=== PATIENT | female | born 1955 | race Caucasian/White ===

== ENCOUNTER → 2019-02-04 10:22 | Outpatient (CLI) | payer OTHER, SELFPAY ==
[2019-02-04 11:02] LABS: Add Manual Diff / Slide Review NO; Basophils Absolute Auto 0 /uL (0-100); Basophils Percent Auto 0.3 % (0-2); Eosinophils Absolute Auto 100 /uL (0-450); Eosinophils Percent Auto 2.8 % (2-4); Hematocrit 39.7 % (36-46); Hemoglobin 13.5 g/dL (12.0-16.0); Lymphocytes Absolute Auto 1600 /uL (1100-4500); Lymphocytes Percent Auto 29.7 % (25-40); Mean Corpuscular Hemoglobin 32.2 PG (26-34); Mean Corpuscular Volume 94.6 fL (80-100); Monocytes Absolute Auto 400 /uL (0-900); Monocytes Percent Auto 6.7 % (3-14); Neutrophils Absolute Auto 3200 /uL (1500-7000); Neutrophils Percent Auto 60.5 % (50-75); Platelet Count 279 X10^3/uL (150-400); Red Cell Distribution Width 13.7 % (11.6-14.8); White Blood Cell Count 5.3 X10^3/uL (4.5-11.0)
[2019-02-04 11:12] LABS: Hemoglobin A1C% w Est Avg Glu 5.5 % (4.0-6.0)
[2019-02-04 11:52] LABS: Alanine Aminotransferase 37 IU/L (9-52); Albumin 4.6 g/dL (3.5-5.0); Albumin Globulin Ratio 1.4 (1.0-2.8); Alkaline Phosphatase 59 U/L (38-126); Aspartate Aminotransferase 25 IU/L (14-36); BUN Creatinine Ratio 15.7 (6-22); Bilirubin Total 0.4 mg/dL (0.2-1.3); Blood Urea Nitrogen 11 mg/dL (7-17); Calcium 9.5 mg/dL (8.4-10.2); Carbon Dioxide 24 mmol/L (22-32); Chloride 103 mmol/L (98-107); Cholesterol 188 mg/dL (140-199); Estimated Glomerular Filt Rate > 60.0 mL/min (>60); Globulin 3.2 g/dL (1.7-4.1); Glucose 107 mg/dL (80-110); HDL Cholesterol 54 mg/dL (40-60); HEMOLYSIS < 15 (0-50); LDL Cholesterol Calculated 116 mg/dL (<100); Potassium 3.8 mmol/L (3.4-5.1); Sodium 141 mmol/L (137-145); Total Protein 7.8 g/dL (6.3-8.2); Triglycerides 90 mg/dL (35-150)
== END ==
PROVIDERS: PCP Family Medicine; Visit Provider Family Medicine
DX: B18.2 Chronic viral hepatitis C (principal); R73.02 Impaired glucose tolerance (oral)
CPT/HCPCS: 36415; 80053; 80061; 83036; 85025

== ENCOUNTER → 2019-02-14 12:33 | Outpatient (CLI) | payer OTHER, SELFPAY ==
--- NOTE | 2019-02-14 12:36 | DI.RAD.S_ITS ---
PROCEDURE: XR HAND RT MIN 3V INDICATIONS: joint pain TECHNIQUE: 3 views of the hand(s) acquired. COMPARISON: None. FINDINGS: Bones: No fractures or dislocations. Carpal bones are normally aligned. No suspicious bony lesions. There is [id number] osteoarthritic changes at the radiocarpal joint, first metacarpophalangeal joint and multiple interphalangeal joints. Soft tissues: No suspicious soft tissue calcifications. IMPRESSION: Mild to moderate osteoarthritic changes. Dictated by: Brandon Garcia M.D. on 02/14/2019 at 17:16 Approved by: Brandon Garcia M.D. on 02/14/2019 at 17:18
[2019-02-14 13:36] LABS: Hemoglobin A1C% w Est Avg Glu 5.5 % (4.0-6.0)
== END ==
PROVIDERS: PCP Family Medicine; Visit Provider Family Medicine
DX: M25.541 Pain in joints of right hand (principal); M19.041 Primary osteoarthritis, right hand; R73.9 Hyperglycemia, unspecified; B19.20 Unspecified viral hepatitis C without hepatic coma
CPT/HCPCS: 36415; 73130; 83036; 87522

== ENCOUNTER 2019-05-19 07:32 | Day surgery (SDC) | payer OTHER, SELFPAY ==
[2019-05-19] VITALS (9 sets, daily range): BP systolic 102–141; BP diastolic 58–80; PULSE 60–70; RESP 10–21; TEMP 36–36.8; O2SAT 95–98; BMI 29.0
--- NOTE | 2019-05-19 | PATH_ITS ---
[facility] Accession Number: [id number] . 01 Material submitted: . rectum - RECTAL POLYP . 01 Clinical history: . SCREENING COLONOSCOPY . 02 Diagnosis: Rectum, Polyp: Hyperplastic polyp. V/05/20/2019 . 02 Electronically signed: . Wander Ponce MD, PhD, Pathologist NPI- [id number] . 01 Gross description: . RECTAL POLYP: Received in formalin is 1 fragment(s) of ye, soft tissue measuring 0.3 x 0.3 x 0.1 cm which is entirely submitted and submitted entirely in 1 cassette(s) /DMC /DMC . 02 Pathologist provided ICD-10: K63.5 . 02 CPT . 483451 Performed at: 01 [facility] [address] [place] [address], [place], [place] [id number] MD Rojelio Pennington MD Phone: [phone] Performed at: 02 [facility] [address] [place], [place] [id number] MD Loretta Burrell MD Phone: [phone]
[2019-05-19] MEDS: SODIUM CHLORIDE 0.9% 1,000 ML 150 ML IV (08:10)
--- NOTE | 2019-05-19 10:53 | PM.HP.1 ---
History of Present Illness Date Patient Seen: 05/19/19 Time Patient Seen: 10:53 Chief complaint: [id number] SCREENING COLONOSCOPY Narrative: 64-year-old woman with a personal history of colon polyps. No family history of colon or rectal cancer. Personal history of IBS Prep well No new intestinal complaints Patient History Medical History (Updated 06/10/18 @ 13:29 by Patti Livingston) Abnormal Pap smear of cervix (Chronic) Dyspareunia (Chronic) GERD (gastroesophageal reflux disease) (Chronic) Genital warts (Chronic) Hepatitis C (Chronic ~1995) Plantar warts (Chronic ~2013) Seasonal allergies (Chronic) Shoulder pain (Chronic) Wrist tendonitis (Chronic) Chickenpox (Resolved) Measles (Resolved) Mumps (Resolved) Surgical History (Updated 06/10/18 @ 13:29 by Patti Livingston) Anesthesia (Inactive) Status post biopsy (~1996) Status post colonoscopy (~2004) Status post colonoscopy (~2007) Status post colonoscopy (~2012) Status post dilation and curettage (~1977) Family History (Updated 12/05/15 @ 00:00 by Conversion Provider) Father Diabetes mellitus Heart disease Mother Hypertension Parkinson disease Sister Age: 68 Hypertension Hypothyroid Sister Age: 64 Hypertension Sister Age: 61 Hypertension Grandfather No problems noted. Grandmother No problems noted. Social History household members: spouse Smoking Status: Former smoker Family & Social History Family History (Updated 12/05/15 @ 00:00 by Conversion Provider) Father Diabetes mellitus Heart disease Mother Hypertension Parkinson disease Sister Age: 68 Hypertension Hypothyroid Sister Age: 64 Hypertension Sister Age: 61 Hypertension Grandfather No problems noted. Grandmother No problems noted. Social History: household members spouse Tobacco & Substance use: Smoking Status Former smoker Meds Home Medications Medication Instructions Recorded Confirmed Type estradiol [Vagifem] 10 mcg VG SEE INSTRUCTIONS #24 tab 06/24/17 05/19/19 Rx amlodipine 5 mg tablet 5 mg PO QDAY #90 tab 12/20/18 05/19/19 Rx ondansetron [Zofran ODT] 4 mg SUBLINGUAL Q6HP PRN 05/19/19 05/19/19 History Allergies Allergy/AdvReac Type Severity Reaction Status Date / Time crab [CRAB] Allergy Mild CONTACT Verified 06/10/18 15:59 HIVES FROM THE SHELLS shrimp [SHRIMP] Allergy Mild CONTACT Verified 06/10/18 15:59 HIVES Review of Systems Constitutional Constitutional: Denies fever(s) Eyes Eyes: Denies bulging eyes ENT Ears, Nose, Mouth, and Throat: No lip swelling Cardiovascular Cardiovascular: Denies generalize swelling Respiratory Respiratory: Denies stridor Gastrointestinal Gastrointestinal: Denies coffee ground emesis Musculoskeletal Musculoskeletal: Denies loss of height Integumentary/Breasts Skin/Breast: Denies wounds Neurologic Neurologic: Denies abnormal speech and Denies confusion Psychiatric Psychiatric: Denies confusion Endocrine Endocrine: Denies deepening of the voice Hematologic/Lymphatic Hematologic/Lymphatic: Denies lymphadenopathy Allergic/Immunologic Allergic/Immunologic: Denies lip swelling Exam Vital Signs (past 8 hours): - 05/19/19 07:53 Temperature 98.2 F Pulse Rate 68 Respiratory Rate 14 Blood Pressure 141/80 H Pulse Oximetry 97 Oxygen Delivery Method Room Air Const General: cooperative and healthy appearing Orientation: alert HENMT Head: normal to inspection Nose: nares normal Mouth: oral mucosae normal and lip normal Eyes Eyelids: eyelids normal Conjunctivae: conjunctivae normal Sclera: sclerae normal Neck Neck: supple and other (No thyromegally) Chest Chest: other (LCTAB , regular respiratory effort) Cardio Rhythm: regular rhythm Heart Sounds: S1 normal, S2 normal, no gallops, no murmurs and no rubs GI Other: Abdomen soft nontender nondistended Skin General: no rashes or lesions noted Neuro General: alert and awake Psych Appearance: grossly normal Affect: normal affect Assessment & Plan Assessment & Plan narrative: 64-year-old woman presents for screening colonoscopy 6 years after her last screening colonoscopy. Family and personal history of colon polyps Risks of colonoscopy including bleeding, , perforation, missed lesions, hypoxia all discussed Patient ready to proceed
[2019-05-19] MEDS: GLUCAGON,HUMAN RECOMBINANT 1 MG/ML VIAL IV ×2 (11:25→11:35)
[2019-05-19] MEDS: diphenhydrAMINE 50 MG/ML VIAL 25 MG IV (11:36)
[2019-05-19] MEDS: fentaNYL 250 MCG/5 ML INJ IV (11:39)
[2019-05-19] MEDS: MIDAZOLAM 5 MG/5 ML VIAL IV (11:40)
--- NOTE | 2019-05-19 11:53 | P.OP.ENDO_ITS ---
Operative Date/Time/Diagnoses Date of procedure: 05/19/19 Time of procedure: 11:48 Pre-op diagnosis: Screening colonoscopy Post-op diagnosis: same Procedure & Clinicians Study performed: Screening colonoscopy-complete Polypectomy x1 forcep, rectum Same procedure as scheduled: Yes Indications: 64-year-old woman with a personal history of IBS and colon polyps - 6 years since last screening colonoscopy now overdue, no family history of colorectal cancer Surgeon: Stephen Kidd Procedure Notes SCOAP/Timeout: Completed Procedure in detail: Patient was brought to the endoscopy suite a time-out was completed. She was sedated with a total of 12 mg of midazolam and 225 micro g of fentanyl. Digital rectal exam was performed and was unremarkable. 160 cm colonoscope was was inserted and passed through the folds of the rectum and colon until the cecum was encountered. The colon itself was quite spastic requiring 1 g of glucagon to assist with scope passes. Overall she was quite tender during passage of the scope. The cecum was eventually reached with visualization of the ileocecal valve as well as the appendiceal orifice. The scope was slowly withdrawn visualizing the mucosa of this bowel. At the level of the rectum a single small sessile polyp was identified and removed via a Jumbo biopsy forcep. The scope was retroflexed no additional lesions were seen Prep was adequate Scope withdrawal time: 8 Sedation minutes: 36 Specimen(s): other (Rectal polyp) Complications: none Impression: 1. Tortuous colon, spastic 2. Single rectal polyp status post polypectomy Recommendations: Colonscopy in 5 years Plan for aftercare: PACU and then home Follow up: as needed Disposition: PACU
== END 2019-05-19 13:32 | disposition home or self-care (01) ==
PROVIDERS: PCP Family Medicine; Visit Provider Surgery
PROC: 0DJD8ZZ Inspection of Lower Intestinal Tract, Via Natural or Artificial Opening Endoscopic (ICD-10-PCS; CPT 45378; principal; 2019-05-19 08:45)
DX: Z86.010 Personal history of colon polyps (principal); K62.1 Rectal polyp
CPT/HCPCS: 45380; 99152; 99153; J1200; J1610; J2250; J3010

== ENCOUNTER → 2020-01-26 10:07 | Outpatient (CLI) | payer MEDICARE, OTHER, SELFPAY ==
[2020-01-26 10:37] LABS: Add Manual Diff / Slide Review NO; Basophils Absolute Auto 0 /uL (0-100); Basophils Percent Auto 0.5 % (0-2); Eosinophils Absolute Auto 300 /uL (0-450); Eosinophils Percent Auto 4.8 % (2-4); Hematocrit 37.7 % (36-46); Hemoglobin 13.1 g/dL (12.0-16.0); Lymphocytes Absolute Auto 1000 /uL (1100-4500); Lymphocytes Percent Auto 15.9 % (25-40); Mean Corpuscular HGB Conc 34.7 % (30-36); Mean Corpuscular Hemoglobin 32.6 PG (26-34); Mean Corpuscular Volume 93.9 fL (80-100); Monocytes Absolute Auto 400 /uL (0-900); Monocytes Percent Auto 6.4 % (3-14); Neutrophils Absolute Auto 4800 /uL (1500-7000); Neutrophils Percent Auto 72.4 % (50-75); Platelet Count 272 X10^3/uL (150-400); Red Blood Cell Count 4.01 X10^6/uL (4.0-5.2); Red Cell Distribution Width 13.4 % (11.6-14.8); White Blood Cell Count 6.6 X10^3/uL (4.5-11.0)
[2020-01-26 10:52] LABS: Alanine Aminotransferase 29 IU/L (<35); Albumin 4.7 g/dL (3.5-5.0); Albumin Globulin Ratio 1.4 (1.0-2.8); Alkaline Phosphatase 61 U/L (38-126); Aspartate Aminotransferase 26 IU/L (14-36); Bilirubin Total 0.4 mg/dL (0.2-1.3); Blood Urea Nitrogen 17 mg/dL (7-17); Calcium 9.6 mg/dL (8.4-10.2); Carbon Dioxide 24 mmol/L (22-32); Chloride 106 mmol/L (98-107); Cholesterol 193 mg/dL (140-199); Estimated Glomerular Filt Rate > 60.0 mL/min (>60); Globulin 3.3 g/dL (1.7-4.1); Glucose 112 mg/dL (80-110); HDL Cholesterol 53 mg/dL (40-60); HEMOLYSIS < 15 (0-50); LDL Cholesterol Calculated 104 mg/dL (<100); Potassium 4.3 mmol/L (3.4-5.1); Sodium 141 mmol/L (137-145); Triglycerides 182 mg/dL (35-150)
[2020-01-26 11:10] LABS: Creatinine Urine Random 117.7 mg/dL
[2020-01-26 11:11] LABS: Microalbumi Creatinin Ratio Ur 5.9 ug/mg CR (<30); Microalbumin Urine Random 0.7 mg/dL (0-1.6)
[2020-01-26 11:35] LABS: TSH w/ Reflex to FT4 1.58 uIU/mL (0.47-4.68)
[2020-01-26 13:39] LABS: Vitamin B12 387 pg/mL (239-931)
[2020-01-28 18:31] LABS: Homocysteine 31.7 umol/L (< 10.4)
[2020-01-30 18:45] LABS: Methylmalonic Acid 198 nmol/L (87-318)
== END ==
PROVIDERS: PCP Family Medicine; Referring Provider Family Medicine; Visit Provider Family Medicine
DX: B18.2 Chronic viral hepatitis C (principal); G62.9 Polyneuropathy, unspecified; I10 Essential (primary) hypertension; R53.83 Other fatigue; R73.02 Impaired glucose tolerance (oral); R73.03 Prediabetes; R74.8 Abnormal levels of other serum enzymes
CPT/HCPCS: 36415; 80053; 80061; 82043; 82570; 82607; 83090; 83921; 84443; 85025

== ENCOUNTER → 2020-06-14 09:33 | Outpatient (CLI) | payer MEDICARE, OTHER, SELFPAY ==
[2020-06-14 10:36] LABS: BUN Creatinine Ratio 24.6 (6-22); Blood Urea Nitrogen 16 mg/dL (7-17); Calcium 10.2 mg/dL (8.4-10.2); Carbon Dioxide 26 mmol/L (22-32); Chloride 104 mmol/L (98-107); Estimated Glomerular Filt Rate > 60.0 mL/min (>60); Glucose 121 mg/dL (80-110); HEMOLYSIS < 15 (0-50); Potassium 4.1 mmol/L (3.4-5.1); Sodium 140 mmol/L (137-145)
[2020-06-14 10:44] LABS: NT-proBNP (BNP-Adult 18+) 183 pg/mL (<125)
== END ==
PROVIDERS: PCP Family Medicine; Referring Provider Registered Nurse Diabetes Educator; Visit Provider Registered Nurse Diabetes Educator
DX: R60.9 Edema, unspecified (principal); Z86.19 Personal history of other infectious and parasitic diseases
CPT/HCPCS: 36415; 80048; 83880; 87522

== ENCOUNTER → 2020-06-26 08:01 | Outpatient (CLI) | payer MEDICARE, OTHER, SELFPAY ==
--- NOTE | 2020-06-26 08:03 | DI.ECHO.S_ITS ---
[facility]---------+ [facility] +---------+ : : [address] : : : : [id number] : : : : Phone: [phone] Echocardiogram Report + + :Name: VIVI KINNEY Study Date: 06/26/2020 Height: 67 in : :[facility] Weight: 190 lb : : Gender: Female BSA: 2.0 m2 : :: 1955 Age: 65 yrs BP: 135/84 mmHg: :Reason For Study: EDEMA : :Ordering Physician: ALISSON, : :NATASHA Performed By: Chary Payan : :Referring: NATASHA VINSON : + + Interpretation Summary Left ventricular systolic function is normal without focal wall motion abnormalities. The ejection fraction is estimated to be 55-60%. Diastolic parameters suggest probable normal left ventricular diastolic function and normal filling pressures. The right ventricle is normal in size and function. The right ventricular systolic pressure is estimated to be at least 31 mmHg based on an estimated right atrial pressure of 3 mm Hg. Both atria are normal in size. There is no significant valvular heart disease. The aortic root is normal size. Procedure: A two-dimensional transthoracic echocardiogram with color flow and Doppler was performed. The study quality was technically adequate. There is no prior echocardiogram noted for this patient. The patient was in sinus rhythm with heart rates between 55-72 bpm during the exam. Left Ventricle: The left ventricle is normal in size and wall thickness. Left ventricular systolic function is normal without focal wall motion abnormalities. The ejection fraction is estimated to be 55-60%. Diastolic parameters suggest probable normal left ventricular diastolic function and normal filling pressures. Right Ventricle: The right ventricle is normal in size and function. Atria: Both atria are normal in size. There is no Doppler evidence for an interatrial shunt. Mitral Valve: The mitral valve is normal in structure and function. There is trace mitral regurgitation. Aortic Valve: The aortic valve is not well visualized. The aortic valve is grossly normal. There is no aortic valve stenosis. No aortic regurgitation is present. Tricuspid Valve: The tricuspid valve is normal in structure and function. There is mild tricuspid regurgitation. The right ventricular systolic pressure is estimated to be at least 31 mmHg based on an estimated right atrial pressure of 3 mm Hg. Pulmonic Valve: The pulmonic valve is not well seen, but is grossly normal. There is a trace or physiologic amount of pulmonic regurgitation. There is no significant valvular heart disease. Great Vessels: The aortic root is normal size. The ascending aorta is at the upper limits of normal in size. The IVC is of normal diameter and collapses greater than 50% with a sniff. This suggests a low right atrial pressure of 3 mm Hg. Pericardium/ Pleura There is no pericardial effusion. There is no pleural effusion. MMode/2D Measurements & Calculations LVIDd: 5.0 cm LVOT diam: 1.9 cm LVIDs: 3.2 cm Ao root diam: 3.1 cm FS: 35.8 % asc Aorta Diam: 3.4 cm EPSS: 1.0 cm Ao Arch Diam (Prox Trans): 2.6 cm IVSd: 0.84 cm LVPWd: 0.88 cm LV ortega. diameter/BSA (cm/m^2): 2.5 LV sys. diameter/BSA (cm/m^2): 1.6 LA A2 area: 18.4 cm2 RA long axis: 4.9 cm LA A4 area: 16.7 cm2 RA area: 15.7 cm2 LA length (vol): 4.9 cm RA vol: 43.0 ml LA vol: 53.4 ml RA : 21.8 ml/m2 LA vol index: 27.0 ml/m2 IVC diam: 1.3 cm RVD1 (basal): 3.7 cm TAPSE: 2.6 cm Doppler Measurements & Calculations Ao V2 max: 183.8 cm/sec LVOT Max Cheo: 114.5 cm/sec Ao V2 mean: 117.5 cm/sec LV V1 max P.2 mmHg Ao max P.5 mmHg LV V1 VTI: 29.0 cm Ao mean P.8 mmHg VALARIE(I,D): 2.2 cm2 Ao V2 VTI: 39.3 cm VALARIE(V,D): 1.8 cm2 sev ratio: 0.74 VALARIE indexed to BSA (cm^2/m^2): 1.1 MV E max cheo: 94.6 cm/sec TR max cheo: 262.4 cm/sec MV A max cheo: 95.5 cm/sec TR max P.5 mmHg MV E/A: 0.99 PA V2 max: 110.5 cm/sec Med Peak E' Cheo: 6.8 cm/sec PA V2 mean: 69.8 cm/sec E/E' med: 14.0 PA mean P.3 mmHg Lat Peak E' Cheo: 10.5 cm/sec PA pr(Accel): 46.5 mmHg E/E' lat: 9.0 E/e' average: 11.5 MV dec time: 0.25 sec SV(OT): 84.9 ml Reading Physician:04:56 PM
== END ==
PROVIDERS: PCP Family Medicine; Referring Provider Family Medicine; Visit Provider Family Medicine
DX: I07.1 Rheumatic tricuspid insufficiency (principal); R79.89 Other specified abnormal findings of blood chemistry; R60.9 Edema, unspecified; R73.02 Impaired glucose tolerance (oral)
CPT/HCPCS: 93306

== ENCOUNTER → 2020-08-20 13:47 | Outpatient (CLI) | payer MEDICARE, OTHER, SELFPAY ==
[2020-08-20 15:03] LABS: BUN Creatinine Ratio 26.8 (6-22); Blood Urea Nitrogen 19 mg/dL (7-17); Calcium 9.8 mg/dL (8.4-10.2); Carbon Dioxide 31 mmol/L (22-32); Chloride 100 mmol/L (98-107); Estimated Glomerular Filt Rate > 60.0 mL/min (>60); Glucose 96 mg/dL (80-110); HEMOLYSIS 16 (0-50); Magnesium 2.2 mg/dL (1.6-2.3); Potassium 3.1 mmol/L (3.4-5.1); Sodium 139 mmol/L (137-145)
== END ==
PROVIDERS: PCP Family Medicine; Referring Provider Family Medicine; Visit Provider Family Medicine
DX: I10 Essential (primary) hypertension (principal)
CPT/HCPCS: 36415; 80048; 83735

== ENCOUNTER → 2020-09-26 10:13 | Outpatient (CLI) | payer MEDICARE, OTHER, SELFPAY ==
[2020-09-26 11:06] LABS: BUN Creatinine Ratio 21.2 (6-22); Blood Urea Nitrogen 14 mg/dL (7-17); Calcium 9.6 mg/dL (8.4-10.2); Carbon Dioxide 32 mmol/L (22-32); Chloride 98 mmol/L (98-107); Estimated Glomerular Filt Rate > 60.0 mL/min (>60); Glucose 125 mg/dL (80-110); HEMOLYSIS < 15 (0-50); Potassium 3.3 mmol/L (3.4-5.1); Sodium 137 mmol/L (137-145)
== END ==
PROVIDERS: PCP Family Medicine; Referring Provider Family Medicine; Visit Provider Family Medicine
DX: E87.6 Hypokalemia (principal); I10 Essential (primary) hypertension
CPT/HCPCS: 36415; 80048

== ENCOUNTER → 2021-01-30 09:35 | Outpatient (CLI) | payer MEDICARE, OTHER, SELFPAY ==
[2021-01-30 11:11] LABS: Blood Urea Nitrogen 18 mg/dL (7-17); Calcium 9.8 mg/dL (8.4-10.2); Carbon Dioxide 26 mmol/L (22-32); Chloride 100 mmol/L (98-107); Estimated Glomerular Filt Rate > 60.0 mL/min (>60); Glucose 125 mg/dL (80-110); HEMOLYSIS < 15 (0-50); Magnesium 1.7 mg/dL (1.6-2.3); Potassium 3.6 mmol/L (3.4-5.1); Sodium 137 mmol/L (137-145)
== END ==
PROVIDERS: PCP Family Medicine; Referring Provider Family Medicine; Visit Provider Family Medicine
DX: E87.6 Hypokalemia (principal); I10 Essential (primary) hypertension
CPT/HCPCS: 36415; 80048; 83735

== ENCOUNTER → 2021-02-08 10:48 | Outpatient (CLI) | payer MEDICARE, OTHER, SELFPAY ==
[2021-02-08 13:07] LABS: TSH w/ Reflex to FT4 2.24 uIU/mL (0.47-4.68)
== END ==
PROVIDERS: PCP Family Medicine; Referring Provider Family Medicine; Visit Provider Family Medicine
DX: R73.03 Prediabetes (principal)
CPT/HCPCS: 36415; 84443

== ENCOUNTER → 2021-05-15 07:42 | Outpatient (CLI) | payer MEDICARE, OTHER, SELFPAY ==
[2021-05-15 08:59] LABS: BUN Creatinine Ratio 22.4 (6-22); Blood Urea Nitrogen 15 mg/dL (7-17); Calcium 10.1 mg/dL (8.4-10.2); Carbon Dioxide 25 mmol/L (22-32); Chloride 101 mmol/L (98-107); Estimated Glomerular Filt Rate > 60.0 mL/min (>60); Glucose 142 mg/dL (80-110); HEMOLYSIS < 15 (0-50); Potassium 3.4 mmol/L (3.4-5.1); Sodium 138 mmol/L (137-145)
[2021-05-16 01:36] LABS: Homocysteine 12.6 umol/L (0.0-17.2)
== END ==
PROVIDERS: PCP Family Medicine; Referring Provider Family Medicine; Visit Provider Family Medicine
DX: I10 Essential (primary) hypertension (principal); R73.02 Impaired glucose tolerance (oral); R73.03 Prediabetes
CPT/HCPCS: 36415; 80048; 83036; 83090

== ENCOUNTER → 2021-08-07 09:17 | Outpatient (CLI) | payer MEDICARE, OTHER, SELFPAY ==
[2021-08-07 11:45] LABS: BUN Creatinine Ratio 22.4 (6-22); Blood Urea Nitrogen 15 mg/dL (7-17); Calcium 9.5 mg/dL (8.4-10.2); Carbon Dioxide 30 mmol/L (22-32); Chloride 100 mmol/L (98-107); Estimated Glomerular Filt Rate > 60.0 mL/min (>60); Glucose 126 mg/dL (80-110); HEMOLYSIS < 15 (0-50); Magnesium 1.9 mg/dL (1.6-2.3); Potassium 3.6 mmol/L (3.4-5.1); Sodium 138 mmol/L (137-145)
== END ==
PROVIDERS: PCP Family Medicine; Referring Provider Family Medicine; Visit Provider Family Medicine
DX: R73.02 Impaired glucose tolerance (oral) (principal); E87.6 Hypokalemia; I10 Essential (primary) hypertension
CPT/HCPCS: 36415; 80048; 83036; 83735

== ENCOUNTER → 2021-08-28 12:56 | Outpatient (CLI) | payer MEDICARE, OTHER, SELFPAY ==
--- NOTE | 2021-08-28 17:16 | DIAB.MNT ---
Initial Diabetes Medical Nutrition Therapy Assessment Name: Kiley Smyth Date: 08/28/21 Time: 110-245p Dx: Type II Diabetes Provider: Maxi Perales Learning Style: Watching Kiley presents today with new dx of T2Dm, lab fastings of >126 mg/dL on two or more occasions. All EMR hx of HgA1c 6% or less. Never attended DM ed, though states her late did have DM. States he checked his blood sugars and had some knowledge of nutrition. Kiley reports stress over the last year with her husbands passing and selling her house. Reports seeing a grief counselor, about to join a support group. Endorses emotional eating, specifically evening snacking. Trying to increase fiber intake via supplements to curb this snacking. States yoga, deep breathing and exercise does help with stress. Endorses feelings of guilt with snacking, often in the form of simple carb choices. Tries to eat fruit for potassium. Reports h/o low potassium r/t diuretic for HTN. Endorses h/o diarrhea, unknown why. Fiber is helping per her report. States her provider and steel inspector have recommended fiber supplements and shakes. She is getting most of her fiber from supplements vs foods. Seems this results in low intake during the afternoon, but still high intake in evening hours. States she enjoys the supplements, and the cost is not a barrier. Limited Dm physiology or nutrition knowledge. Diet Recall: 7a: coffee with creamer, toast, HB egg, low CHO yogurt, half grapefruit or avocado, 2-3 slices thin rosales 9a:fiber supplement 3p: chocolate glucose control supplement 200 kcals 15g CHO 5p: mashed jpotatoes and friedn chicken OR turkey potatoes, green beans 5-7p 1oz chips or crackers and cheese, licorice, m&ms, almonds Beverages: water, coffee, shake, 2 light beers Anthropometrics: Ht: 67 Wt: 188-192# (Reported) Physical Activity: daily exercise walking videos with some strength training q day with alarm since 08/08/21 Self-Monitoring Blood Glucose: Not currently checking. It seems she may be having elevated fastings given that fasting labs are often elevated and hgA1c <6%. She seems interested in knowing what her BG are between HgA1c labs. Diabetes Medications: None Past Medical History: (Last Updated 08/14/21 @ 12:01 by Amy German DO) Cat bite Chickenpox 1950's or 60's Diabetes Dyspareunia [id number] Elevated brain natriuretic peptide (BNP) level Elevated liver enzymes (12/14/15) Genital warts Late 1969' GERD (gastroesophageal reflux disease) EGD [address] Sandhu Hepatitis C (~1995) treated in 2018 Hypokalemia Measles 1949's Mumps 1959's Peripheral edema Plantar warts (~2013) Seasonal allergies Shoulder pain Tobacco use disorder, moderate, in sustained remission Wrist tendonitis With injection Pertinent Labs: Fastin H (08/07/21); 142 H (05/15/21); HgA1c: 6% Nutrition Rx: Carbohydrates: Meal: 30-45g Snack: 15-30g Nutrition Diagnosis: - Excessive CHO intake r/t emotional eating / cravings in the evening aeb diet recall - Nutrition and food related knowledge deficit r/t new dx Dm aeb pt report and FBG labs - Inconsistent kcal intake r/t skipped meals and fiber supplements during mid-day (which could result in high intake in evening aeb diet recall Intervention: This participant was very receptive. Provided appropriate educational handouts. Discussed the following topics: Completed intake assessment. Discussed barriers to care. Pathophysiology of T2DM HgA1c and FBG How Dm is diagnosed Briefly discussed self monitoring. If she would like to start, encouraged her to discuss with provider. Plate Method, impact of macronutrients on blood sugar, meal timing, carbohydrate counting, pairing macronutrients and spreading out carbohydrates for better blood glucose management Recommended servings for carbohydrates at meals and snacks Stress and DM, stress management and resources Brainstormed appropriate balanced evening snacks based on food preferences to help with cravings Encouraged eating balanced small meals/snacks q 3-4 hours Role of physical activity Mindfulness and hunger/fullness briefly Created SMART goals for patient self-care and success. Goals: continue walking 30 min per day Practice mindfulness with snack in the evening (slow eating, smelling, tasting, enjoying snack) Set an 8p snack time (add protein to snack) After snack, if having a craving assess hunger/fullness as discussed Follow-up: RICHARD GLASGWO follow-up in 2-3 weeks Alicia Link RDN, PEE Certified Diabetes Care and Supervisor [employer] P: [phone] Thank you for this referral
== END ==
PROVIDERS: PCP Family Medicine; Referring Provider Family Medicine; Visit Provider Family Medicine
DX: E11.9 Type 2 diabetes mellitus without complications (principal); Z71.3 Dietary counseling and surveillance
CPT/HCPCS: 97802

== ENCOUNTER → 2021-09-18 13:25 | Outpatient (CLI) | payer MEDICARE, OTHER, SELFPAY ==
--- NOTE | 2021-09-19 17:13 | DIAB.FU ---
Follow-up Diabetes Education Assessment Name: Kiley Smyth Date: 09/18/21 Time: 130-230p Dx: Type II Diabetes Provider: Maxi Cao presents for diabetes follow-up. Endorses reduced evening snacking and cravings. Has increased exercise, which she feels has helped with cravings. Has been more conscious of carb serving sizes and adding protein to meals and snacks. Reports improved stress management with grief counselor's help. Tries to stay present when feeling stressed. Taking omega supplement (not rx'd by provider). Has questions as to whether she should continue this since they are expensive, bean dumper recommended. Eats fish once per month. Diet recall indicates good meal timing and appropriate portions. Physical Activity: walking 30 mins per day with some resistance training via walking videos. Self-Monitoring Blood Glucose: States she wants to use her late 's old glucometer. RD/CDCES did discourage sharing BG monitoring devices. Discussed getting an rx for a meter or buying over the counter. Late 's meter is >3 years old with strips. She was fairly adamant about using this meter, as she does not want to buy a new one, and she endorses cleaning the equipment. Today in clinic I showed her how to clean the technology according to the manual to reduce risks. Also showed her how to check BG, however she decides to do that. Again, a new meter was strongly encouraged. BG monitoring to determine if FBG are often elevated or if pc BG are elevated would be recommended. If FBG are consistently above 130 mg/dL she may benefit from medication mgmgnt. Kiley does not want to add medication, but she is aware that if BG are above ADA targets, this would be the recommended plan. She has agreed to this. Diabetes Medications: None Pertinent Labs: Fastin H (08/07/21); 142 H (05/15/21); HgA1c: 6% Past Medical History: (Last Updated 08/14/21 @ 12:01 by Amy German DO) Cat bite Chickenpox 1950's or 60's Diabetes Dyspareunia 2000-1000 Elevated brain natriuretic peptide (BNP) level Elevated liver enzymes (12/14/15) Genital warts Late 1969's GERD (gastroesophageal reflux disease) EGD [address] [place] Hepatitis C (~1995) treated in 2018 Hypokalemia Measles 1950's Mumps 1960's Peripheral edema Plantar warts (~2013) Seasonal allergies Shoulder pain Tobacco use disorder, moderate, in sustained remission Wrist tendonitis With injection Intervention: This participant was very receptive. Provided appropriate educational handouts. Discussed the following topics: BG monitoring techniques and recs ADA BG goals: 80-130 mg/dL for fasting and <180 mg/dL 1-2 hr pc Medication management potential Review of general nutrition recommendations and current intake Physical activity plan and impact on blood sugars Stress management and resources Created SMART goals for patient self-care and success. Goals: continue walking 30 min per day- met Practice mindfulness with snack in the evening (slow eating, smelling, tasting, enjoying snack)- met Set an 8p snack time (add protein to snack)-met After snack, if having a craving assess hunger/fullness as discussed - met check BG 3-4 x per week- new Follow-up: RICHARD GLASGOW follow-up in 2-3 weeks Alicia Link RDN, PEE Certified Diabetes Care and Crab Backer P: [phone] Thank you for this referral
== END ==
PROVIDERS: PCP Family Medicine; Referring Provider Family Medicine; Visit Provider Family Medicine
DX: E11.9 Type 2 diabetes mellitus without complications (principal); Z71.3 Dietary counseling and surveillance
CPT/HCPCS: G0108

== ENCOUNTER → 2021-11-12 08:21 | Outpatient (CLI) | payer MEDICARE, OTHER, SELFPAY ==
[2021-11-12 09:25] LABS: Add Manual Diff / Slide Review NO; Basophils Absolute Auto 0 /uL (0-100); Basophils Percent Auto 0.5 % (0-2); Eosinophils Absolute Auto 200 /uL (0-450); Eosinophils Percent Auto 3.3 % (2-4); Hematocrit 37.5 % (36-46); Lymphocytes Absolute Auto 1200 /uL (1100-4500); Lymphocytes Percent Auto 25.8 % (25-40); Mean Corpuscular HGB Conc 34.5 % (30-36); Mean Corpuscular Hemoglobin 32.1 PG (26-34); Mean Corpuscular Volume 93.1 fL (80-100); Monocytes Absolute Auto 300 /uL (0-900); Monocytes Percent Auto 6.7 % (3-14); Neutrophils Absolute Auto 3100 /uL (1500-7000); Neutrophils Percent Auto 63.7 % (50-75); Platelet Count 279 X10^3/uL (150-400); Red Blood Cell Count 4.03 X10^6/uL (4.0-5.2); Red Cell Distribution Width 13.4 % (11.6-14.8); White Blood Cell Count 4.8 X10^3/uL (4.5-11.0)
[2021-11-12 09:35] LABS: Prothrombin Time 11.3 SECONDS (10.1-12.7)
[2021-11-12 09:38] LABS: PTT Partial Thromboplastin Tim 32 SECONDS (26.4-36.2)
[2021-11-12 09:49] LABS: Erythrocyte Sedimentation Rate 10 MM/HR (0-20)
[2021-11-12 10:27] LABS: Creatinine Urine Random 136.6 mg/dL
[2021-11-12 10:28] LABS: Alanine Aminotransferase 38 IU/L (<35); Albumin 4.7 g/dL (3.5-5.0); Albumin Globulin Ratio 1.7 (1.0-2.8); Alkaline Phosphatase 58 U/L (38-126); Aspartate Aminotransferase 29 IU/L (14-36); BUN Creatinine Ratio 24.6 (6-22); Bilirubin Total 0.5 mg/dL (0.2-1.3); Blood Urea Nitrogen 16 mg/dL (7-17); C-Reactive Protein Quant < 0.5 mg/dL (<1.0); Calcium 10.1 mg/dL (8.4-10.2); Carbon Dioxide 30 mmol/L (22-32); Chloride 103 mmol/L (98-107); Estimated Glomerular Filt Rate > 60.0 mL/min (>60); Globulin 2.8 g/dL (1.7-4.1); Glucose 140 mg/dL (80-110); HEMOLYSIS < 15 (0-50); Potassium 4.1 mmol/L (3.4-5.1); Sodium 140 mmol/L (137-145); Total Protein 7.5 g/dL (6.3-8.2)
[2021-11-12 10:31] LABS: Microalbumi Creatinin Ratio Ur 33.6 ug/mg CR (<30); Microalbumin Urine Random 4.6 mg/dL (0-1.6)
== END ==
PROVIDERS: PCP Family Medicine; Referring Provider Family Medicine; Visit Provider Family Medicine
DX: E11.9 Type 2 diabetes mellitus without complications (principal); I10 Essential (primary) hypertension; R23.3 Spontaneous ecchymoses; Z86.19 Personal history of other infectious and parasitic diseases
CPT/HCPCS: 36415; 80053; 82043; 82570; 83036; 85025; 85610; 85651; 85730; 86140

== ENCOUNTER → 2022-03-27 15:30 | Outpatient (CLI) | payer MEDICARE, OTHER, SELFPAY ==
[2022-03-31 03:22] LABS: Alder IgE <0.10 kU/L (Class 0); Alternaria alternata IgE <0.10 kU/L (Class 0); Aspergillus fumigatus IgE <0.10 kU/L (Class 0); Box Elder IgE <0.10 kU/L (Class 0); Cladosporium herbarum IgE <0.10 kU/L (Class 0); Cockroach IgE <0.10 kU/L (Class 0); Cottonwood IgE <0.10 kU/L (Class 0); D farinae IgE <0.10 kU/L (Class 0); D pteronyssinus IgE <0.10 kU/L (Class 0); Dog Dander IgE <0.10 kU/L (Class 0); Elm Tree IgE <0.10 kU/L (Class 0); Immunoglobulin E 75 IU/mL (6-495); Mountain Cedar IgE <0.10 kU/L (Class 0); Mouse Urine Proteins IgE <0.10 kU/L (Class 0); Nettle IgE <0.10 kU/L (Class 0); Oak Tree IgE <0.10 kU/L (Class 0); Penicillium chrysogen IgE <0.10 kU/L (Class 0); Pigweed, Common IgE <0.10 kU/L (Class 0); Ragweed, Short <0.10 kU/L (Class 0); Sheep Sorrel IgE <0.10 kU/L (Class 0); Silver Birch IgE <0.10 kU/L (Class 0); Timothy Grass IgE <0.10 kU/L (Class 0); Walnut Allery IgE < 0.10 kU/L (Class 0); White ash IgE <0.10 kU/L (Class 0)
[2022-04-01 09:40] LABS: Cat Dander IgE <0.10
== END ==
PROVIDERS: PCP Registered Nurse Diabetes Educator; Referring Provider Registered Nurse Diabetes Educator; Visit Provider Registered Nurse Diabetes Educator
DX: Z91.09 Other allergy status, other than to drugs and biological substances (principal)
CPT/HCPCS: 36415; 82785; 86003

== ENCOUNTER → 2022-04-17 09:58 | Outpatient (CLI) | payer MEDICARE, OTHER, SELFPAY ==
--- NOTE | 2022-04-17 10:00 | DI.RAD.S_ITS ---
PROCEDURE: XR CERVICAL SPINE 4V OR 5V INDICATIONS: eval persistent neck pain/radicular symptoms TECHNIQUE: 5 views of the cervical spine were acquired. COMPARISON: None. FINDINGS: Bones: No fractures or dislocations to the T1 level. No suspicious bony lesions. Loss of lordosis which could be related to muscle spasm, rigidity or simply positional. Mild to moderate disc height loss at the C5-C6 level and there are multilevel prominent anterior osteophytes. Mild multilevel mid and lower cervical spine facet joint arthropathy. Oblique views demonstrate mild neural foraminal narrowing on the right at the C5-C6 and C6-C7 levels and on the left at the C4-C5 and C6-C7 levels Soft tissues: Prevertebral soft tissues are normal in thickness. IMPRESSION: Loss of lordosis and multilevel spondylosis. Dictated by: Pasha Olsen [facility] Interpreted: Eric Sweeney MD on 04/17/2022 at 10:19 Transcribed by: KIKO on 04/17/2022 at 10:21 Approved by: Eric Sweeney M.D. on 04/17/2022 at 11:25
== END ==
PROVIDERS: PCP Registered Nurse Diabetes Educator; Referring Provider Registered Nurse Diabetes Educator; Visit Provider Registered Nurse Diabetes Educator
DX: M54.12 Radiculopathy, cervical region (principal); M54.2 Cervicalgia; M47.892 Other spondylosis, cervical region
CPT/HCPCS: 72050

== ENCOUNTER → 2022-05-22 07:14 | Outpatient (CLI) | payer MEDICARE, OTHER, SELFPAY ==
[2022-05-22 08:27] LABS: Hemoglobin A1C% w Est Avg Glu 6.3 % (4.0-6.0)
[2022-05-22 08:33] LABS: Alanine Aminotransferase 40 IU/L (<35); Albumin 4.6 g/dL (3.5-5.0); Albumin Globulin Ratio 1.5 (1.0-2.8); Alkaline Phosphatase 65 U/L (38-126); Aspartate Aminotransferase 34 IU/L (14-36); BUN Creatinine Ratio 23.4 (6-22); Bilirubin Total 0.5 mg/dL (0.2-1.3); Blood Urea Nitrogen 15 mg/dL (7-17); Calcium 9.6 mg/dL (8.4-10.2); Carbon Dioxide 28 mmol/L (22-32); Chloride 100 mmol/L (98-107); Cholesterol 205 mg/dL (140-199); Estimated Glomerular Filt Rate > 60 mL/min (>60); Globulin 3.1 g/dL (1.7-4.1); Glucose 144 mg/dL (80-110); HDL Cholesterol 53 mg/dL (40-60); HEMOLYSIS < 15 (0-50); LDL Cholesterol Calculated 132 mg/dL (<100); Potassium 3.7 mmol/L (3.4-5.1); Sodium 138 mmol/L (137-145); Total Protein 7.7 g/dL (6.3-8.2); Triglycerides 100 mg/dL (35-150)
[2022-05-22 10:36] LABS: Creatinine Urine Random 73.2 mg/dL
[2022-05-22 10:41] LABS: Microalbumin Urine Random < 0.6 mg/dL (0-1.6)
== END ==
PROVIDERS: PCP Registered Nurse Diabetes Educator; Referring Provider Family Medicine; Visit Provider Family Medicine
DX: E11.9 Type 2 diabetes mellitus without complications (principal); I10 Essential (primary) hypertension; R80.9 Proteinuria, unspecified
CPT/HCPCS: 36415; 80053; 80061; 82043; 82570; 83036

== ENCOUNTER → 2022-08-23 11:22 | Outpatient (CLI) | payer MEDICARE, OTHER, SELFPAY ==
--- NOTE | 2022-08-23 11:24 | DI.MG.S_ITS ---
BILATERAL DIGITAL SCREENING MAMMOGRAM 3D/2D WITH CAD: 08/23/2022 CLINICAL: Routine screening. Comparison is made to exams dated: 10/25/2019 mammogram, 01/06/2017 mammogram, and 12/03/2015 mammogram - [facility]. Both breasts are heterogeneously dense, which may obscure small masses (category c / 51-75% glandular tissue). Current study was also evaluated with a Computer Aided Detection (CAD) system. No significant masses, calcifications, or other findings are seen in either breast. There has been no significant interval change. IMPRESSION: NEGATIVE There is no mammographic evidence of malignancy. A 1 year screening mammogram is recommended. Based on the Tyrer Cuzick model (a risk assessment model) the patient's lifetime risk is 9.6% and her 10 year risk is 5.1%. According to the ACR, ACS, and NCCN guidelines, an annual breast MRI exam along with mammogram is recommended if the patient's lifetime risk is 20% or greater. This exam was interpreted at Station ID: [id number]. NOTE: For mammograms, a report in lay terms will be sent to the patient. Approximately 15% of breast malignancies will not be visualized mammographically. In the management of a palpable breast mass, a negative mammogram must not discourage biopsy of a clinically suspicious lesion. Electronically Signed By: Gordo valdivia/josi:08/23/2022 13:06:52 letter sent: Normal Exam ACR BI-RADS Category 1: Negative [id number]
== END ==
PROVIDERS: PCP Registered Nurse Diabetes Educator; Referring Provider Registered Nurse Diabetes Educator; Visit Provider Registered Nurse Diabetes Educator
DX: Z12.31 Encounter for screening mammogram for malignant neoplasm of breast (principal)
CPT/HCPCS: 77063; 77067

== ENCOUNTER → 2022-10-15 12:24 | Outpatient (CLI) | payer MEDICARE, OTHER, SELFPAY ==
[2022-10-15 14:22] LABS: Appearance Urine UA SL CLOUDY; Bilirubin Urine UA NEGATIVE (NEGATIVE); Color Urine UA YELLOW; Glucose Urine UA NEGATIVE (Negative); Ketones Urine UA NEGATIVE (NEGATIVE); Leukocyte Esterase Urine UA 3+ (NEGATIVE); Nitrite Urine UA NEGATIVE (Negative); Occult Blood Urine UA 2+ (Negative); Protein Urine UA NEGATIVE (Negative); Urobilinogen Urine UA 0.2 E.U./dL (0.2)
[2022-10-15 14:33] LABS: pH Urine UA 5.5 (4.5-8.0)
[2022-10-15 16:26] LABS: Bacteria Urine Few (2-10); Culture Indicated Urine Specimen Cultured; RBC Urine None Seen (0-5/HPF); WBC Urine 30-100/HPF (0-5/HPF)
== END ==
PROVIDERS: PCP Registered Nurse Diabetes Educator; Referring Provider Registered Nurse Diabetes Educator; Visit Provider Registered Nurse Diabetes Educator
DX: R30.0 Dysuria (principal)
CPT/HCPCS: 81001; 87077; 87086; 87186

== ENCOUNTER → 2022-10-29 07:45 | Outpatient (CLI) | payer MEDICARE, OTHER, SELFPAY ==
[2022-10-29 10:52] LABS: HEMOLYSIS < 15 (0-50); Iron 95 ug/dL (37-170)
[2022-10-29 10:53] LABS: Hemoglobin A1C% w Est Avg Glu 6.2 % (4.0-6.0)
[2022-10-29 11:06] LABS: Percent Iron Saturation 26 % (15-50); Total Iron Binding Capacity 361 ug/dL (265-497); Transferrin 285 mg/dL (206-381)
[2022-10-29 19:30] LABS: Alanine Aminotransferase 34 IU/L (<35); Albumin 4.6 g/dL (3.5-5.0); Albumin Globulin Ratio 1.6 (1.0-2.8); Alkaline Phosphatase 55 U/L (38-126); Aspartate Aminotransferase 24 IU/L (14-36); BUN Creatinine Ratio 34.8 (6-22); Bilirubin Total 0.5 mg/dL (0.2-1.3); Blood Urea Nitrogen 23 mg/dL (7-17); Calcium 9.6 mg/dL (8.4-10.2); Carbon Dioxide 25 mmol/L (22-32); Chloride 102 mmol/L (98-107); Cholesterol 200 mg/dL (140-199); Estimated Glomerular Filt Rate > 60 mL/min (>60); Globulin 2.9 g/dL (1.7-4.1); Glucose 131 mg/dL (80-110); HDL Cholesterol 59 mg/dL (40-60); HEMOLYSIS < 15 (0-50); LDL Cholesterol Calculated 112 mg/dL (<100); Potassium 3.8 mmol/L (3.4-5.1); Sodium 137 mmol/L (137-145); Total Protein 7.5 g/dL (6.3-8.2); Triglycerides 146 mg/dL (35-150)
[2022-10-29 20:05] LABS: Ferritin 122 ng/mL (11-264)
[2022-10-30 16:26] LABS: Hepatitis B Surface Antigen NEGATIVE s/c (NEGATIVE)
[2022-10-31 08:42] LABS: Hepatitis B Core AB w/Reflex Positive (Negative); Hepatitis B Core AB, IgM Negative (Negative)
== END ==
PROVIDERS: PCP Registered Nurse Diabetes Educator; Referring Provider Registered Nurse Diabetes Educator; Visit Provider Registered Nurse Diabetes Educator
DX: E78.5 Hyperlipidemia, unspecified (principal); R74.8 Abnormal levels of other serum enzymes; I10 Essential (primary) hypertension; Z86.19 Personal history of other infectious and parasitic diseases
CPT/HCPCS: 36415; 80053; 80061; 82728; 83036; 83540; 83550; 86704; 87340; 87522

== ENCOUNTER → 2022-11-06 14:48 | Outpatient (CLI) | payer MEDICARE, OTHER, SELFPAY ==
[2022-11-06 17:11] LABS: Hepatitis B Surface Antigen NEGATIVE s/c (NEGATIVE)
[2022-11-07 04:36] LABS: Hepatitis B Surf Ab Qualitativ Non Reactive (.)
[2022-11-08 09:06] LABS: Hepatitis B Core AB w/Reflex Positive (Negative); Hepatitis B Core AB, IgM Negative (Negative)
== END ==
PROVIDERS: PCP Registered Nurse Diabetes Educator; Referring Provider Registered Nurse Diabetes Educator; Visit Provider Registered Nurse Diabetes Educator
DX: R76.8 Other specified abnormal immunological findings in serum (principal)
CPT/HCPCS: 36415; 86704; 86706; 87340

== ENCOUNTER → 2023-06-01 14:31 | Outpatient (CLI) | payer MEDICARE, OTHER, SELFPAY ==
--- NOTE | 2023-06-01 14:33 | DI.RAD.S_ITS ---
PROCEDURE: XR CHEST 2V INDICATIONS: eval chest pain TECHNIQUE: 2 views of the chest were acquired. COMPARISON: None. FINDINGS: Surgical changes and devices: None. Lungs and pleura: Mild elevation of the left hemidiaphragm. Streaky left basilar opacities are present. No pleural effusions or pneumothorax. Mediastinum: Mediastinal contours are normal. Heart size is normal. Bones and chest wall: No suspicious bony abnormalities. Soft tissues appear unremarkable. IMPRESSION: Mild elevation of the left hemidiaphragm with minimal left basilar opacities present probably representing atelectasis, aspiration or pneumonia not excludable. Dictated by: Olaf Haney M.D. on 06/01/2023 at 17:26 Approved by: Olaf Haney M.D. on 06/01/2023 at 17:29
== END ==
PROVIDERS: PCP Registered Nurse Diabetes Educator; Referring Provider Registered Nurse Diabetes Educator; Visit Provider Registered Nurse Diabetes Educator
DX: R07.9 Chest pain, unspecified (principal)
CPT/HCPCS: 71046; 93005

== ENCOUNTER → 2023-07-06 15:15 | Outpatient (CLI) | payer MEDICARE, OTHER, SELFPAY ==
--- NOTE | 2023-07-07 08:56 | DI.NM.S_ITS ---
DATE OF SERVICE: 07/06/2023 PROCEDURE: Exercise treadmill stress test without imaging. ORDERING PROVIDER: CHIVO Cota. INDICATIONS: The patient is a 68-year-old female with an isolated episode of prolonged atypical chest discomfort with subsequent atypical chest tightness. FINDINGS: 1. The patient was able to exercise for 7 minutes and 19 seconds on a standard Elvin protocol suggesting very good exercise capacity with an HARSH of -21%, achieving 7.3 METS. 2. She had a normal heart rate and blood pressure response to exercise, achieving a maximum heart rate of 129 BPM (85% of her predicted maximum). 3. She had no chest discomfort or other anginal symptoms. 4. Her resting ECG showed sinus rhythm with normal ST segments. There were no significant ST-segment shifts or arrhythmias with stress. IMPRESSION: 1. Normal exercise treadmill stress test for ischemia. 2. Very good exercise capacity without angina or arrhythmias. [place]/charli doc#: [id number]/job#: [id number] dd: 07/06/2023 17:20:00 dt: 07/06/2023 20:20:00 DICTATING /TONY TO: Coleman Michel MD; CHIVO Cota COPIES MNE: MICHELLE;
== END ==
PROVIDERS: PCP Registered Nurse Diabetes Educator; Referring Provider Registered Nurse Diabetes Educator; Visit Provider Registered Nurse Diabetes Educator
DX: R07.9 Chest pain, unspecified (principal)
CPT/HCPCS: 93017

== ENCOUNTER → 2023-07-08 07:09 | Outpatient (CLI) | payer MEDICARE, OTHER, SELFPAY ==
[2023-07-08 08:06] LABS: Hematocrit 37.5 % (36-46); Hemoglobin 12.9 g/dL (12.0-16.0); Mean Corpuscular HGB Conc 34.5 % (30-36); Mean Corpuscular Hemoglobin 32.2 PG (26-34); Mean Corpuscular Volume 93.3 fL (80-100); Platelet Count 320 X10^3/uL (150-400); Red Blood Cell Count 4.02 X10^6/uL (4.0-5.2); Red Cell Distribution Width 13.3 % (11.6-14.8)
[2023-07-08 08:17] LABS: Alanine Aminotransferase 28 IU/L (<35); Albumin 4.3 g/dL (3.5-5.0); Albumin Globulin Ratio 1.3 (1.0-2.8); Alkaline Phosphatase 59 U/L (38-126); Aspartate Aminotransferase 26 IU/L (14-36); BUN Creatinine Ratio 34.8 (6-22); Bilirubin Total 0.4 mg/dL (0.2-1.3); Blood Urea Nitrogen 23 mg/dL (7-17); Calcium 9.5 mg/dL (8.4-10.2); Carbon Dioxide 29 mmol/L (22-32); Chloride 102 mmol/L (98-107); Cholesterol 203 mg/dL (140-199); Estimated Glomerular Filt Rate > 60 mL/min (>60); Globulin 3.3 g/dL (1.7-4.1); Glucose 124 mg/dL (80-110); HDL Cholesterol 64 mg/dL (40-60); HEMOLYSIS < 15 (0-50); LDL Cholesterol Calculated 108 mg/dL (<100); Potassium 3.6 mmol/L (3.4-5.1); Sodium 138 mmol/L (137-145); Total Protein 7.6 g/dL (6.3-8.2); Triglycerides 157 mg/dL (35-150)
[2023-07-08 08:48] LABS: TSH w/ Reflex to FT4 2.88 uIU/mL (0.47-4.68)
[2023-07-08 09:05] LABS: Creatinine Urine Random 119.1 mg/dL
[2023-07-08 09:12] LABS: Microalbumi Creatinin Ratio Ur 5.8 ug/mg CR (<30); Microalbumin Urine Random 0.7 mg/dL (0-1.6)
[2023-07-09 03:03] LABS: x Labcorp Estim. Avg Glu (eAG) 120 mg/dL (.); x Labcorp Hemoglobin A1c 5.8 % (4.8-5.6)
== END ==
PROVIDERS: PCP Registered Nurse Diabetes Educator; Referring Provider Registered Nurse Diabetes Educator; Visit Provider Registered Nurse Diabetes Educator
DX: E11.9 Type 2 diabetes mellitus without complications (principal); E78.5 Hyperlipidemia, unspecified
CPT/HCPCS: 36415; 80053; 80061; 82043; 82570; 83036; 84443; 85027

== ENCOUNTER → 2023-08-03 12:43 | Outpatient (CLI) | payer MEDICARE, OTHER, SELFPAY ==
--- NOTE | 2023-08-03 12:44 | DI.RAD.S_ITS ---
Bone Density Report Name: VIVI KINNEY Age: 68 Sex: Female Ethnicity: White Date of : 1955 Indication: postmenopausal; screening for osteoporosis; Referring Provider: SARAN GARCIA Study: Bone densitometry was performed. Exam Date: August 03, 2023 Accession number: [id number] Bone Density: Region BMD T-score Z-score Classification AP Spine(L1, L3, L4) 1.326 2.5 4.5 Normal Femoral Neck (Left) 0.895 0.4 2.1 Normal Total Hip (Left) 1.112 1.4 2.8 Normal Femoral Neck (Right) 0.881 0.3 2.0 Normal Total Hip (Right) 1.088 1.2 2.6 Normal Total Hip Mean 1.100 1.3 2.7 Normal World Health Organization criteria for BMD impression classify patients as: Normal (T-score at or above -1.0), Osteopenia (T-score between -1.0 and -2.5), or Osteoporosis (T-score at or below -2.5). 10-year Fracture Risk: FRAX not reported because: All T-scores for Spine Total, Hip Total, Femoral Neck at or above -1.0 Impression: The patient has normal bone mass. Discussion: BONE DENSITY IS ABOVE THE MINIMUM DESIRABLE LEVEL AT ALL SKELETAL SITES TESTED. This patient's bone mineral density is above the minimum desirable level (T-score -1.0 or better) at all sites measured. The patient should follow a healthful lifestyle (good nutrition with adequate calcium and vitamin D, and appropriate weight-bearing exercise). Follow-Up: Consider repeating this study in 5 years or sooner if there is some new clinical indication. Reported by: JANIE MOY M.D. on 08/03/2023 1:07:00 PM.
== END ==
PROVIDERS: PCP Registered Nurse Diabetes Educator; Referring Provider Registered Nurse Diabetes Educator; Visit Provider Registered Nurse Diabetes Educator
DX: Z78.0 Asymptomatic menopausal state (principal); Z13.820 Encounter for screening for osteoporosis
CPT/HCPCS: 77080